=== PATIENT | female | born 1980 | race Caucasian/White ===

== ENCOUNTER 2022-01-07 21:17 | Observation (INO) ==
[2022-01-07] MEDS ORDERED: LACTATED RINGERS 1,000 ML IV ONE (21:31)
[2022-01-07 21:39] LABS: Basophils # 0.1 10*3/uL (0.0-0.2); Basophils % 0.4 % (0.0-0.8); Eosinophils # 0.1 10*3/uL (0.0-0.87); Eosinophils % 1.2 % (0.00-10.9); Hematocrit 48.1 VOL% (35.7-47.0); Hemoglobin 16.3 GM/DL (12.0-16.0); Immature Granulocytes % 0.3 %; Immature Granulocytes Absolute 0.04 #; Lymphocytes # 0.8 10*3/uL (1.4-4.0); Lymphocytes % 6.4 % (21.3-54.2); Mean Corpuscular HGB Conc 33.9 GM/DL (32-36); Mean Corpuscular Volume 92.3 FL (87-102); Mean Platelet Volume 9.4 FL (9.6-12.0); Monocytes # 0.7 10*3/uL (0.11-0.8); Monocytes % 6.2 % (1.7-12.7); Neutrophils % 85.5 % (38.7-73.9); Platelet Count 290 T/CUMM (130-400); Red Blood Count 5.21 MC/CUMM (3.8-5.5); Red Cell Distribution Width 11.9 % (9.3-17.3); White Blood Count 11.9 T/CUMM (4-12)
[2022-01-07] MEDS ORDERED: SODIUM CHLORIDE 0.9% 1,000 ML IV STA ×2 (21:41→23:20)
[2022-01-07] MEDS ORDERED: ONDANSETRON 4 MG/2 ML VIAL IV STA (21:41)
[2022-01-07] MEDS ORDERED: HYDROmorphone 1 MG/1 ML SYRINGE IV STA (21:41)
[2022-01-07] MEDS ORDERED: PANTOPRAZOLE 40 MG VIAL IV STA (21:41)
[2022-01-07 22:03] LABS: Albumin 4.6 G/DL (3.4-5.0); Calcium 9.3 MG/DL (8.5-10.1); Osmolality,Calculated 273.8 MOS/KG (273-304); Potassium 3.8 MMOL/L (3.5-5.1)
[2022-01-07] MEDS ORDERED: PROMETHAZINE 25 MG/1 ML VIAL IM STA (22:50)
[2022-01-07] MEDS ORDERED: diphenhydrAMINE CAP 25 MG CAPSULE PO PRN (23:20)
[2022-01-07] MEDS ORDERED: PROMETHAZINE 25 MG/1 ML VIAL IM PRN (23:20)
[2022-01-07] MEDS ORDERED: ACETAMINOPHEN 325 MG TABLET PO PRN (23:20)
[2022-01-07] MEDS ORDERED: NICOTINE 21 MG/24 HR PATCH TRANSDERM PRN (23:20)
[2022-01-07] MEDS ORDERED: GLUCAGON 1 MG VIAL IM PRN (23:20)
[2022-01-07] MEDS ORDERED: ZALEPLON 5 MG CAPSULE PO PRN (23:20)
[2022-01-07] MEDS ORDERED: PROMETHAZINE 25 MG TABLET PO PRN (23:20)
[2022-01-07] MEDS ORDERED: guaiFENesin/DM ER 600-30 MG TABLET PO PRN (23:20)
[2022-01-07] MEDS ORDERED: hydrALAZINE 20 MG/1 ML VIAL IV PRN (23:20)
[2022-01-07] MEDS ORDERED: DEXTROSE 10% 250 ML BAG IV PRN (23:28)
[2022-01-08] MEDS: MORPHINE 2 MG/1 ML SYRINGE IV PRN ×6 (00:09→23:10)
[2022-01-08] MEDS: DEXT 5% NACL 0.9% KCL 40 MEQ 40 MEQ/1,000 ML BAG IV SCH ×5 (00:13→23:25)
[2022-01-08] MEDS: HEPARIN 5,000 UNIT/1 ML VIAL SUBCUT SCH ×3 (00:13→23:14)
[2022-01-08 01:21] LABS: Bacteria,Urine Occasional /HPF (Few); Bilirubin,Urine Negative (Negative); Blood, Urine Negative (Negative); Glucose,Urine (UA) Negative (Negative); Ketones,Urine 15 mg/dL (Negative); Mucus,Urine Occasional /LPF (Occasional); Nitrite,Urine Negative (Negative); Protein,Urine Negative (Negative); RBC,Urine 1 /HPF (0-4); Squamous Epithelial Cell,Urine Occasional /HPF (0-10); Urine Appearance Clear (Clear); Urine Color Yellow (Yellow); Urine Specific Gravity < 1.005 (1.001-1.035); Urine Urobilinogen 0.2 eU/dL (<2.0)
[2022-01-08 02:07] LABS: Barbiturates Screen,Urine Negative (Negative); Benzodiazepines Screen,Urine Negative (Negative); Cannabinoid Screen,Urine Negative (Negative); Opiate Screen,Urine Positive (Negative); Phencyclidine Screen,Urine Negative (Negative)
[2022-01-08] MEDS: ONDANSETRON 4 MG/2 ML VIAL IV PRN ×4 (02:07→22:10)
[2022-01-08 04:55] LABS: Basophils % 0.2 % (0.0-0.8); Eosinophils # 0.1 10*3/uL (0.0-0.87); Eosinophils % 1.3 % (0.00-10.9); Hematocrit 38.5 VOL% (35.7-47.0); Hemoglobin 12.8 GM/DL (12.0-16.0); Immature Granulocytes % 0.3 %; Immature Granulocytes Absolute 0.02 #; Lymphocytes # 0.7 10*3/uL (1.4-4.0); Lymphocytes % 11.5 % (21.3-54.2); Mean Corpuscular HGB Conc 33.2 GM/DL (32-36); Mean Corpuscular Volume 92.3 FL (87-102); Mean Platelet Volume 9.8 FL (9.6-12.0); Monocytes # 0.7 10*3/uL (0.11-0.8); Monocytes % 10.7 % (1.7-12.7); Platelet Count 190 T/CUMM (130-400); Red Blood Count 4.17 MC/CUMM (3.8-5.5); Red Cell Distribution Width 11.9 % (9.3-17.3); White Blood Count 6.3 T/CUMM (4-12)
[2022-01-08 05:03] LABS: Albumin 3.3 G/DL (3.4-5.0); Bilirubin,Total 0.7 MG/DL (0.20-1.00); Calcium 8.4 MG/DL (8.5-10.1); Osmolality,Calculated 272.7 MOS/KG (273-304); Potassium 3.6 MMOL/L (3.5-5.1); Total Protein 6.6 G/DL (6.4-8.2)
[2022-01-08] MEDS: PANTOPRAZOLE 40 MG VIAL IV SCH (09:00)
[2022-01-09] MEDS: DEXT 5% NACL 0.9% KCL 40 MEQ 40 MEQ/1,000 ML BAG IV SCH ×2 (03:23→07:39)
[2022-01-09] MEDS: PANTOPRAZOLE 40 MG VIAL IV SCH (10:38)
[2022-01-09] MEDS: HEPARIN 5,000 UNIT/1 ML VIAL SUBCUT SCH (10:41)
[2022-01-09 12:02] VITALS: BP 91/55
== END 2022-01-09 14:00 | disposition home or self-care (01) ==
LOC: N.ED 21:17 → N.EDINP 21:17 → SUATTDRO 23:20 → N.EDINP 01-08 15:25 → N.5E 01-08 15:48
PROVIDERS: ADMIT Internal Medicine; ATTEND Internal Medicine Geriatric Medicine